=== PATIENT | female | born 2005 | race Caucasian/White ===

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

== ENCOUNTER 2023-06-25 15:29 | Emergency (ER) | payer OTHER, SELFPAY ==
[~2023-06-25] VITALS: Ht 152.4 cm; Wt 39.6 kg
[2023-06-25] MEDS ORDERED: IBUP-1022 PO ×2 (16:24→18:55)
[2023-06-25] MEDS ORDERED: TYLE650T38 PO (16:24)
[2023-06-25] MEDS ORDERED: IBUPROFEN 600MG TAB PO ONE (18:55)
[2023-06-25] MEDS ORDERED: CLEO300C2 PO (18:55)
[2023-06-25] MEDS ORDERED: CLINDAMYCIN 150MG CAPSULE PO ONE (18:55)
[2023-06-25 18:59] VITALS: BP 119/79; TEMP 98.4; O2SAT 99
== END 2023-06-25 19:10 | disposition home or self-care (01) ==
LOC: M ED 15:29
DX: K04.7 Periapical abscess without sinus (principal); Z88.5 Allergy status to narcotic agent